=== PATIENT | female | born 1930 | race Caucasian/White ===

== ENCOUNTER → 2016-09-10 | Outpatient (CLI) | payer MEDICARE, MEDICAID ==
[~2016-09-10] MED LIST: CEROVITE ADVANC1 TAB PO; CHERATUSSIN AC10 ML PO; CLARITIN10 MG PO; ELIQUIS2.5 MG PO; ELIQUIS5 MG PO; FLONASE16 GM NASBOTH; LYRICA50 MG PO; NEXIUM40 MG PO; NORVASC10 MG PO; PROSIGHT1 TAB PO; PROVENTIL HFA6.7 GM INH; SINGULAIR10 MG PO; VITAMIN C500 M1 PO; VITAMIN D35000 UNIT PO
== END | disposition short-term general hospital (02) ==
LOC: CLCARD 09:31
DX: I48.0 Paroxysmal atrial fibrillation (principal); I10 Essential (primary) hypertension; R05 Cough; Z79.899 Other long term (current) drug therapy

== ENCOUNTER → 2016-10-12 | Outpatient (CLI) | payer MEDICARE, MEDICAID | END | disposition short-term general hospital (02) | LOC: CLONCO 11:23 | DX: D47.2 Monoclonal gammopathy (principal) ==

== ENCOUNTER → 2016-11-10 | Outpatient (CLI) | payer MEDICARE, MEDICAID | END | disposition short-term general hospital (02) | LOC: CLPULM 14:35 | DX: J45.991 Cough variant asthma (principal); R06.83 Snoring; G47.10 Hypersomnia, unspecified; K21.9 Gastro-esophageal reflux disease without esophagitis; I10 Essential (primary) hypertension; G62.9 Polyneuropathy, unspecified; J30.9 Allergic rhinitis, unspecified; Z86.79 Personal history of other diseases of the circulatory system; F32.9 Major depressive disorder, single episode, unspecified; J42 Unspecified chronic bronchitis; M19.90 Unspecified osteoarthritis, unspecified site; Z86.711 Personal history of pulmonary embolism ==